=== PATIENT | female | born 1995 | race Caucasian/White ===

== ENCOUNTER → 2016-03-10 | Outpatient (CLI) | payer BC, OTHER ==
--- NOTE | 2016-03-10 15:50 | US ---
EXAMINATION TYPE: US pelvic complete DATE OF EXAM: 03/10/2016 3:19 PM COMPARISON: US on PACS CLINICAL HISTORY: Pelvic Pain R10.2. TECHNIQUE: TA Date of LMP: 2 months post . No normal period since. EXAM MEASUREMENTS: Uterus: 11.0 x 6.1 x 4.3 cm Endometrial Stripe: 0.9 cm Right Ovary: 4.2 x 3.2 x 2.5 cm Left Ovary: 2.5 x 1.9 x 1.7 cm TECHNOLOGIST IMPRESSION: wnl 1. Uterus: large size, 2. Endometrium: wnl 3. Right Ovary: with cyst = 2.4 x 1.2 x 1.4 cm 4. Left Ovary: with follicles 5. Bilateral Adnexa: wnl 6. Posterior cul-de-sac: wnl IMPRESSION: 1. Right ovarian cyst. 2. Pelvic ultrasound otherwise appears within normal limits.
== END | disposition home or self-care (01) ==
LOC: RADUSWWP 15:02
PROVIDERS: ATTEND Obstetrics & Gynecology
DX: N83.201 Unspecified ovarian cyst, right side (principal)
CPT/HCPCS: 76856

== ENCOUNTER → 2017-10-21 | Outpatient (CLI) | payer OTHER ==
[2017-10-21 15:23] LABS: HGB 10.2 gm/dL (11.4-16.0); MCH 31.3 pg (25.0-35.0); MCHC 32.8 g/dL (31.0-37.0); MCV 95.3 fL (80.0-100.0); Mean Platelet Volume 6.8; Platelet Count 253 k/uL (150-450); RBC 3.26 m/uL (3.80-5.40); RDW 12.7 % (11.5-15.5)
== END ==
LOC: LABWHC1 13:43
PROVIDERS: ATTEND Obstetrics & Gynecology
DX: Z34.82 Encounter for supervision of other normal pregnancy, second trimester (principal); Z3A.00 Weeks of gestation of pregnancy not specified
CPT/HCPCS: 36415; 82950; 85027

== ENCOUNTER 2018-01-26 00:50 | Outpatient (CLI) | payer OTHER ==
[2018-01-26 02:38] VITALS: BP 118/61; PULSE 98; RESP 16; TEMP 98.1
== END 2018-01-26 02:15 | disposition home or self-care (01) ==
LOC: FBPOP 00:50
PROVIDERS: ATTEND Obstetrics & Gynecology
DX: O47.03 False labor before 37 completed weeks of gestation, third trimester (principal)
CPT/HCPCS: 59025; 99213

== ENCOUNTER 2018-02-02 05:42 | Inpatient (IN) | payer OTHER ==
--- NOTE | 2018-02-01 19:52 | P.HPOB ---
History of Present Illness H&P Date: 02/01/18 Chief Complaint: Induction of labor This is a 23-year-old female 3 para 1 with an estimated date of confinement of 02/09/2018, estimated gestational age of 39 weeks, who presents to labor and delivery for induction of labor. She admits to good movement. She complains of irregular frequent contractions. course has been uncomplicated. labs: Hepatitis B surface antigen-negative RPR-nonreactive Rubella-immune Blood type-O+ Antibody screen-negative Hemoglobin-12.1 Toxoplasma-negative Random glucose-83 One hour Glucola-99 Obstetrical ultrasound-normal anatomy Group B streptococcus-negative Obstetrical history: . History of 1 vaginal delivery at term. Gynecologic history: No history of sexual transmitted diseases. Social history: She is . She is not currently working outside the home. Review of Systems Constitutional: Denies chills, Denies fever Eyes: denies blurred vision, denies pain Ears, nose, mouth and throat: Denies headache, Denies sore throat Cardiovascular: Denies chest pain, Denies shortness of breath Respiratory: Denies cough Gastrointestinal: Reports abdominal pain (Irregular contractions) Genitourinary: Reports pelvic pain, Reports Musculoskeletal: Reports low back pain Integumentary: Denies pruritus, Denies rash Neurological: Denies numbness, Denies weakness Psychiatric: Denies anxiety, Denies depression Past Medical History Past Medical History: No Reported History History of Any Multi-Drug Resistant Organisms: None Reported Past Surgical History: No Surgical Hx Reported Past Anesthesia/Blood Transfusion Reactions: No Reported Reaction Past Psychological History: No Psychological Hx Reported Smoking Status: Never smoker Past Alcohol Use History: None Reported - Past Family History Mother History Unknown: Yes Additional Family Medical History / Comment(s): Adopted at age 9. Medications and Allergies Home Medications Medication Instructions Recorded Confirmed Type Pnv,Calcium 72/Iron/Folic Acid 1 tab PO DAILY 05/30/15 01/26/18 History [ Plus Tablet] Iron 1 tab PO DAILY 01/08/16 01/26/18 History Allergies Allergy/AdvReac Type Severity Reaction Status Date / Time No Known Allergies Allergy Verified 01/26/18 00:55 Exam Osteopathic Statement: *. No significant issues noted on an osteopathic structural exam other than those noted in the History and Physical/Consult. HEENT: Within normal limits Heart: Regular rate and rhythm Lungs: Clear to auscultation bilaterally Abdomen: Cervix: 1-1/2 cm/70%/-1 station heart tones: 140s by Doppler Extremities: Negative Homans Assessment and Plan (1) 39 weeks gestation of Status: Acute Code(s): Z3A.39 - 39 WEEKS GESTATION OF SNOMED Code( s): 18132553 Plan: Proceed with oxytocin induction of labor. Expectant management. Epidural anesthesia if desired.
[2018-02-02] MEDS ORDERED: OXYTOCIN 10 UNIT/ML 1 ML VIAL IM PRN (05:56)
[2018-02-02] MEDS ORDERED: LIDOCAINE 1% INJ 10MG/ML (20 ML MDV) SQ PRN (05:56)
[2018-02-02] MEDS ORDERED: TERBUTALINE 1 MG/ML VIAL SQ PRN (05:56)
[2018-02-02] MEDS ORDERED: LIDOCAINE 1% 20 ML VIAL (10MG/ML) FOR IV START INTRADERMA PRN (05:56)
[2018-02-02] MEDS ORDERED: METHYLERGONOVINE 0.2 MG/ML 1 ML AMP IM PRN (05:56)
[2018-02-02] MEDS ORDERED: OXYTOCIN 20 UNITS/1000 ML NS 1,000 ML IV SCH ×2 (05:56→14:28)
[2018-02-02] MEDS ORDERED: CARBOPROST TROMETHAMINE 250 MCG/ML 1 ML AMP IM PRN (05:56)
[2018-02-02 06:06] VITALS: BMI 29.5
[2018-02-02] MEDS: LACTATED RINGERS 1,000 ML IV SCH ×2 (06:12→10:32)
[2018-02-02 06:40] LABS: Basophils % (A) 0 %; Eosinophils # (A) 0.1 k/uL (0-0.7); Eosinophils % (A) 2 %; HCT 28.3 % (34.0-46.0); HGB 8.8 gm/dL (11.4-16.0); Hypochromasia Moderate; Lymphocytes # (A) 2.1 k/uL (1.0-4.8); Lymphocytes % (A) 24 %; MCH 27.1 pg (25.0-35.0); MCHC 31.1 g/dL (31.0-37.0); MCV 87.1 fL (80.0-100.0); Mean Platelet Volume 7.5; Monocytes # (A) 0.4 k/uL (0-1.0); Monocytes % (A) 5 %; Neutrophils % (A) 68 %; Platelet Count 305 k/uL (150-450); RBC 3.25 m/uL (3.80-5.40); RDW 14.9 % (11.5-15.5); WBC 8.8 k/uL (3.8-10.6)
[2018-02-02] MEDS ORDERED: BUTORPHANOL 1 MG/ML 1 ML VIAL IV PRN (09:36)
[2018-02-02] MEDS ORDERED: fentaNYL (PF) 50 MCG/ML 5 ML AMP ONE (10:12)
[2018-02-02] MEDS ORDERED: SODIUM CHLORIDE 0.9% 100 ML BAG ONE (10:12)
[2018-02-02] MEDS ORDERED: ROPIVACAINE 5MG/ML 20ML VIAL ONE (10:12)
[2018-02-02] MEDS ORDERED: ROPIVACAINE 100 MG, fentaNYL (PF) 200 MCG in SODIUM CHLORIDE 0.9% 76 ML EPIDURAL ONE (10:54)
--- NOTE | 2018-02-02 14:26 | P.PROBDLV ---
Vaginal Delivery Note - . Vaginal Delivery Note: The patient reached complete dilation after oxytocin induction of labor and artificial rupture membranes with clear fluid noted. She did receive epidural anesthesia. Once reaching complete dilation, she pushed approximate 1 push and infant's head came across the perineum followed by the anterior shoulder and the remainder the body. Cord was clamped and cut. was taken to warmer for evaluation. A viable male is noted with scores of 8 at 1 minute and 9 at 5 minutes and infant weight is 7 lbs. 3 oz. Placenta delivered shortly thereafter, intact, with a three-vessel cord. Uterus contracted well after oxytocin was given and uterine massage was carried out. Inspection of the perineum revealed a minor abrasion but no active bleeding. Estimated blood loss is approximately 150 mL's. Both mother and are in stable condition.
[2018-02-02] MEDS ORDERED: ZOLPIDEM 5 MG TAB PO PRN (14:28)
[2018-02-02] MEDS ORDERED: LANOLIN CREAM 5 GM TUBE TOPICAL PRN (14:28)
[2018-02-02] MEDS ORDERED: diphenhydrAMINE 25 MG CAP PO PRN (14:28)
[2018-02-02] MEDS ORDERED: WITCH HAZEL 1 EACH MED..PAD TOPICAL PRN (14:28)
[2018-02-02] MEDS ORDERED: HYDROCORTISONE 2.5% RECTAL CREAM 30 GM TUBE RECTAL PRN (14:28)
[2018-02-02] MEDS ORDERED: SIMETHICONE 80 MG CHEWABLE PO PRN (14:28)
[2018-02-02] MEDS ORDERED: diphenhydrAMINE 50 MG/ML 1 ML VIAL IVP PRN ×2 (14:28)
[2018-02-02] MEDS ORDERED: diphenhydrAMINE 50 MG CAP PO PRN (14:28)
[2018-02-02] MEDS ORDERED: ACETAMINOPHEN TAB 325 MG TAB PO PRN (14:28)
[2018-02-02] MEDS ORDERED: BENZOCAINE/MENTHOL SPRAY 1 GM/SPRAY AEROSOL TOPICAL PRN (14:28)
[2018-02-02 14:49] VITALS: RESP 16
[2018-02-02] MEDS: IBUPROFEN 600 MG TAB PO PRN ×2 (16:12→22:05)
[2018-02-02] MEDS ORDERED: INFLUENZA VACCINE (6 MOS+) 60 MCG/0.5 ML SYRINGE IM ONE (20:30)
[2018-02-02] MEDS: SENNOSIDES-DOCUSATE SODIUM 1 EACH TAB PO SCH (22:39)
[2018-02-02] MEDS ORDERED: DIPH,PERTUS(ACELL)TETVAC-LF 0.5 ML VIAL IM ONE (22:43)
[2018-02-03 07:02] LABS: Basophils % (A) 0 %; Eosinophils # (A) 0.2 k/uL (0-0.7); Eosinophils % (A) 2 %; HCT 30.1 % (34.0-46.0); HGB 9.2 gm/dL (11.4-16.0); Hypochromasia Marked; Lymphocytes # (A) 2.2 k/uL (1.0-4.8); Lymphocytes % (A) 22 %; MCH 26.8 pg (25.0-35.0); MCHC 30.5 g/dL (31.0-37.0); MCV 87.9 fL (80.0-100.0); Mean Platelet Volume 7.2; Monocytes # (A) 0.4 k/uL (0-1.0); Monocytes % (A) 4 %; Neutrophils # (A) 6.9 k/uL (1.3-7.7); Neutrophils % (A) 69 %; Platelet Count 301 k/uL (150-450); RBC 3.42 m/uL (3.80-5.40); RDW 14.7 % (11.5-15.5)
[2018-02-03] MEDS: SENNOSIDES-DOCUSATE SODIUM 1 EACH TAB PO SCH (07:57)
[2018-02-03] MEDS: IBUPROFEN 600 MG TAB PO PRN (07:58)
[2018-02-03 08:42] VITALS: BP 109/72; PULSE 86; TEMP 98.3
--- NOTE | 2018-02-03 08:48 | P.DS ---
Providers Date of admission: 02/02/18 05:42 Expected date of discharge: 02/03/18 Attending physician: Mervat Loza Primary care physician: Stated None - Discharge Diagnosis(es) (1) 39 weeks gestation of Current Visit: No Status: Acute Hospital Course: This is a 23-year-old female 3 para 1 at 39-0/7 weeks who presented for induction of labor. She underwent oxytocin induction of labor and artificial rupture of membrane's with clear fluid noted. She delivered vaginally a viable male infant on 02/02/2018 with scores of 8 at 1 minute and 9 at 5 minutes and weight of 7 lbs. 3 oz. Her course has been uncomplicated. She is bottle feeding. Lochia is decreasing. Pain is well- controlled. Vital signs are stable. Abdomen is soft with fundus firm and nontender. Extremities show negative Homans. Impression is status post vaginal delivery day #1. Plan is to discharge home today. Routine instructions are given. She will be given a prescription for ibuprofen. She is advised to follow-up in the office in 6 weeks for a check. She is advised to call the office if she has any further questions or concerns prior to her appointment time. Procedures: Oxytocin induction of labor Spontaneous vaginal delivery of a viable male infant on 02/02/2018 Patient Condition at Discharge: Stable Plan - Discharge Summary New Discharge Prescriptions: New Ibuprofen [Motrin] 600 mg PO Q6HR PRN #60 tab PRN Reason: Mild Pain Or Fever >= 100.5 Continue Pnv,Calcium 72/Iron/Folic Acid [ Plus Tablet] 1 tab PO DAILY Iron 1 tab PO DAILY Discharge Medication List Pnv,Calcium 72/Iron/Folic Acid [ Plus Tablet] 1 tab PO DAILY 05/30/15 [ History] Iron 1 tab PO DAILY 01/08/16 [History] Ibuprofen [Motrin] 600 mg PO Q6HR PRN #60 tab 02/03/18 [Rx] Follow up Appointment(s)/Referral(s): Mervat Loza DO [Doctor of Osteopathic Medicine] - 6 Weeks Activity/Diet/Wound Care/Special Instructions: Instructions 1. Do not begin any exercise program for 3 weeks. 2. Do not resume sexual relations for 3 weeks or longer if uncomfortable. 3. You may take tub baths or showers at any time. 4. You may use tampons if desired after 3 weeks. 5. Keep the area of episiotomy (stitches) clean and dry. 6. If you are not nursing, wear a good fitting, supportive bra during the day and limit fluid intake for at least 1 week to prevent breast engorgement. 7. Call the office, [phone], within the next week to make appointment for your 6 week checkup if it has not already been made. 8. Report any of the following occurrences to the doctor promptly: a. Heavy, excessive bleeding b. Chills, fever c. Burning or frequency of urination d. Pain or redness and breasts if nursing e. Increasing pain or swelling in episiotomy (stitches). In addition to the above instructions, the following additional should be followed: 1. No heavy lifting or straining (exercising) until after 6 week checkup. 2. Keep abdominal incision clean and dry: You may wear a dressing if more comfortable. 3. Make office appointment for 10 days after going home or as instructed by her doctor. Discharge Disposition: HOME SELF-CARE
== END 2018-02-03 15:55 | disposition home or self-care (01) | DRG 807 ==
LOC: 4FBP 05:42
PROVIDERS: ADMIT Obstetrics & Gynecology; ATTEND Obstetrics & Gynecology
PROC: 00HU33Z Insertion of Infusion Device into Spinal Canal, Percutaneous Approach (ICD-10-PCS; principal; 2018-02-02)
PROC: 3E0R3NZ Introduction of Analgesics, Hypnotics, Sedatives into Spinal Canal, Percutaneous Approach (ICD-10-PCS; principal; 2018-02-02)
PROC: 10907ZC Drainage of Amniotic Fluid, Therapeutic from Products of Conception, Via Natural or Artificial Opening (ICD-10-PCS; principal; 2018-02-02)
PROC: 10E0XZZ Delivery of Products of Conception, External Approach (ICD-10-PCS; principal; 2018-02-02)
PROC: 3E033VJ Introduction of Other Hormone into Peripheral Vein, Percutaneous Approach (ICD-10-PCS; principal; 2018-02-02)
DX: O75.9 Complication of labor and delivery, unspecified (principal); Z37.0 Single live birth; Z3A.39 39 weeks gestation of pregnancy
CPT/HCPCS: 85025; 86850; 86900; 86901; 90471; 90472; 90686; 90715

== ENCOUNTER → 2019-03-24 | Outpatient (CLI) | payer BC ==
--- NOTE | 2019-03-24 13:05 | US ---
EXAMINATION TYPE: US pelvic complete DATE OF EXAM: 03/24/2019 COMPARISON: US 03/10/2016 CLINICAL HISTORY: R10.2 Pelvic pain. Pt states constant pelvic cramping TECHNIQUE: Transabdominal (TA). Transabdominal sonographic images of the pelvis were acquired. Date of LMP: 03/10/2019 EXAM MEASUREMENTS: Uterus: 11.1 x 3.6 x 4.9 cm Endometrial Stripe: 0.6 cm Right Ovary: 3.7 x 2.0 x 3.0 cm Left Ovary: 2.3 x 1.3 x 2.4 cm 1. Uterus: Anteverted wnl 2. Endometrium: wnl 3. Right Ovary: Dominant follicle= 2.0 x 1.6 x 1.7 cm 4. Left Ovary: wnl 5. Bilateral Adnexa: wnl 6. Posterior cul-de-sac: wnl IMPRESSION: Physiologic dominant right ovarian follicle. Otherwise unremarkable pelvic ultrasound.
== END | disposition home or self-care (01) ==
LOC: RADUSWWP 12:29
PROVIDERS: ATTEND Obstetrics & Gynecology
DX: R10.2 Pelvic and perineal pain (principal)
CPT/HCPCS: 76856

== ENCOUNTER 2019-04-14 06:32 | Day surgery (SDC) | payer BC, OTHER ==
[2019-04-12 16:15] VITALS: BMI 24.0
--- NOTE | 2019-04-13 20:09 | P.HPOB ---
History of Present Illness H&P Date: 04/13/19 Chief Complaint: Family planning This is a 24 y.o. female, 3, para 2, who presents for laparoscopic bilateral tubal ligation via fulgaration for family planning. OB Hx: . History of 2 vaginal deliveries adn 1 miscarriage. [employer] Hx: No hx STDs. Social Hx: . Homemaker. Review of Systems Constitutional: Reports fatigue, Reports night sweats, Denies chills, Denies fever Eyes: denies blurred vision, denies pain Ears, nose, mouth and throat: Denies headache, Denies sore throat Cardiovascular: Denies chest pain, Denies shortness of breath Respiratory: Denies cough Gastrointestinal: Reports diarrhea, Denies abdominal pain Genitourinary: Reports dyspareunia, Reports pelvic pain, Denies Musculoskeletal: Reports myalgias Integumentary: Denies pruritus, Denies rash Neurological: Denies numbness, Denies weakness Psychiatric: Reports irritability, Denies anxiety, Denies depression Endocrine: Reports flushing Past Medical History Past Medical History: No Reported History Additional Past Medical History / Comment(s): SEIZURE AT 15 YRS OLD. History of Any Multi-Drug Resistant Organisms: None Reported Past Surgical History: No Surgical Hx Reported Past Anesthesia/Blood Transfusion Reactions: No Reported Reaction Additional Past Anesthesia/Blood Transfusion Reaction / Comment(s): NO ANESTHESIA HX. Past Psychological History: Anxiety, Depression Additional Psychological History / Comment(s): STATES NO PROBLEMS NOW. Smoking Status: Former smoker Past Alcohol Use History: Occasional Additional Past Alcohol Use History / Comment(s): SMOKED FOR 1 CHIRAG, QUIT AT 18 YRS OLD Past Drug Use History: None Reported - Past Family History Mother History Unknown: Yes Additional Family Medical History / Comment(s): Adopted at age 9. Medications and Allergies Home Medications Medication Instructions Recorded Confirmed Type No Known Home Medications 04/12/19 04/14/19 History Allergies Allergy/AdvReac Type Severity Reaction Status Date / Time No Known Allergies Allergy Verified 04/14/19 06:41 Exam Osteopathic Statement: *. No significant issues noted on an osteopathic structural exam other than those noted in the History and Physical/Consult. HEENT: within normal limits Heart: regular rate and rhythm Lungs: clear to ausculation bilaterally Abdomen: soft, non-tender Pelvic: uterus retroverted, mildly tender, no adnexal masses Extremities: neg. [place]'s Assessment and Plan (1) Family planning Current Visit: No Status: Acute Code(s): Z30.09 - ENCOUNTER FOR OTH GENERAL CNSL AND ADVICE ON CONTRACEPTION SNOMED Code(s): 787228318 Plan: Proceed with laparoscopic bilateral tubal ligation via fulgaration. I have discussed the risks, benefits, and alternative therapies for the above- mentioned procedure and for both sedation/anesthesia as well as necessary blood products administration, if indicated, as they pertain to this patient. The patient has indicated her understanding and acceptance of the risks and procedures discussed.
[~2019-04-14 06:32] MED LIST: DEXAMETHASONE SOD PHOSPHATE 10 MG/ML 1 ML VIAL IV ONE; LACTATED RINGERS 1,000 ML IV SCH; LIDOCAINE 1% (10MG/ML) FOR IV START INTRADERMA PRN; MIDAZOLAM 2 MG/2 ML VIAL IV PRN; ONDANSETRON 4 MG/2 ML VIAL IVP ONE; Pre Op ABX Message 1 EACH MISC MISCELLANE ONE; fentaNYL (PF) 50 MCG/ML 2 ML AMP IVP PRN
[2019-04-14] MEDS ORDERED: ePHEDrine SULFATE/0.9% NACL/PF 50 MG/5 ML SYRINGE IV ONE (07:27)
[2019-04-14] MEDS ORDERED: LIDOCAINE 1% INJ 10MG/ML (20 ML MDV) ONE (07:27)
[2019-04-14] MEDS ORDERED: KETOROLAC 30 MG/ML 1 ML VIAL ONE (07:27)
[2019-04-14] MEDS ORDERED: PROPOFOL 10 MG/ML 20 ML VIAL IV ONE (07:27)
[2019-04-14] MEDS ORDERED: MIDAZOLAM 2 MG/2 ML VIAL ONE (07:27)
[2019-04-14] MEDS ORDERED: SUCCINYLCHOLINE CHLORIDE VIAL 200 MG/10 ML VIAL IV ONE (07:27)
[2019-04-14] MEDS ORDERED: fentaNYL (PF) 50 MCG/ML 2 ML AMP ONE (07:27)
[2019-04-14] MEDS ORDERED: BUPIVACAINE (PF) 0.25% 30 ML VIAL SQ ONE ×2 (07:31→07:37)
[2019-04-14] MEDS ORDERED: LACTATED RINGERS 1,000 ML IV ONE (08:00)
--- NOTE | 2019-04-14 08:18 | P.OP ---
Date of Procedure: 04/14/19 Preoperative Diagnosis: Family planning Postoperative Diagnosis: Same Procedure(s) Performed: Laparoscopic bilateral tubal ligation via fulguration Anesthesia: TERESA Surgeon: Mervat Loza Estimated Blood Loss (ml): 2 Pathology: none sent Condition: stable Disposition: same day Indications for Procedure: This is a 24 y.o. female, 3, para 2, who presents for laparoscopic bilateral tubal ligation via fulgaration for family planning. Operative Findings: Uterus is anteverted, sounded to 8/2 cm. There is grade 1-2 uterine prolapse noted. Normal uterus tubes and ovaries are noted. Description of Procedure: The patient is taken to the operating room where she is placed in the dorsal lithotomy position. She is prepped and draped in the normal sterile fashion. Examination is performed under anesthesia. Uterus is found to be in a anteverted position. No adnexal masses were palpated. Next a bivalve speculum was placed in the patient's vagina. A single-tooth tenaculum was used to grasp the anterior lip of the cervix. The uterus was sounded to 8.5 cm. The kroner uterine manipulator was then inserted through the cervix and the balloon was inflated. The single-tooth tenaculum is removed speculum was removed gloves were changed and attention was turned to the abdomen. A small stab incision was made with a scalpel in the infraumbilical fold. A towel clip was placed above the umbilicus for retraction. A 5 mm disposable bladeless trocar was then inserted into the peritoneal cavity under direct visualization. Once inside, pneumoperitoneum was achieved with CO2 gas. The insert was removed and the cam era was placed. Intraperitoneal placement was confirmed. No bleeding was noted. Next the patient was placed in Trendelenburg position. A small stab incision was made suprapubically and a 5 mm disposable bladeless trocar was inserted into the peritoneal cavity under direct visualization. Once inside pelvic contents were inspected. Next a bipolar Kleppinger instrument was placed through the inferior trocar and the midportion of each tube was brought away from other structures and completely fulgurated on approximate 2-3 cm segment of each tube. Excellent hemostasis was noted. Pictures were taken. Pneumoperitoneum was released after the inferior trocar was removed under direct visualization. The upper trocar was then removed. The skin incisions were then closed with 4-0 Vicryl suture in a subcuticular fashion. Incisions were then injected with quarter percent Marcaine. Approximately 7 mL were used. Next the kroner uterine manipulator was removed. Minimal bleeding was noted. All sponge and needle counts are correct. The patient is then taken to recovery room in stable condition.
[2019-04-14] MEDS ORDERED: ONDANSETRON 4 MG/2 ML VIAL IVP ONE (08:33)
[2019-04-14] MEDS: HYDROmorphone 0.5 MG/0.5 ML SYRINGE IVP PRN ×2 (08:35→08:40)
[2019-04-14] MEDS ORDERED: MEPERIDINE 50 MG/ML SYRINGE IVP ONE (08:45)
[2019-04-14] MEDS ORDERED: MIDAZOLAM 2 MG/2 ML VIAL IVP ONE (08:51)
[2019-04-14 08:56] VITALS: TEMP 97
[2019-04-14] MEDS ORDERED: HYDROcodone/APAP 5-325MG 1 EACH TAB PO ONE (09:28)
[2019-04-14] MEDS ORDERED: PROMETHAZINE INJ 25 MG/ML 1 ML VIAL IVPB ONE (09:55)
[2019-04-14 09:57] VITALS: BP 127/77; PULSE 70; RESP 18
== END 2019-04-14 10:39 | disposition home or self-care (01) ==
LOC: OR 06:32
PROVIDERS: ATTEND Obstetrics & Gynecology
DX: Z30.2 Encounter for sterilization (principal); F41.9 Anxiety disorder, unspecified; F32.9 Major depressive disorder, single episode, unspecified; Z87.891 Personal history of nicotine dependence
CPT/HCPCS: 81025; 58670; J2250; J0330; J1100; J2550; J2175; J2405; J2001; J3010; J1885; J2704; J1170